=== PATIENT | female | born 1985 | race Caucasian/White ===

== ENCOUNTER 2023-07-01 08:34 | Day surgery (SDC) | payer BC, SELFPAY ==
[2023-07-01] VITALS (28 sets, daily range): BP systolic 82–114; BP diastolic 52–83; PULSE 57–96; RESP 13–18; TEMP 36–37.3; O2SAT 97–100; BMI 24.3
[2023-07-01] MEDS: CEFAZOLIN 2 GM INJ IVP (07:56)
--- OUTSIDE RECORDS SUMMARY | 2023-07-01 08:38 | XMS_ITS | Clinical Summary ---
Author Name Unknown Organization [employer] [facility] [employer] Address [place], [place] [address] Care Team Providers Care Child Day Care Teacher Name Role Phone Gracia Mills MD Primary Care Prov ider Allergies No known active allergies Medications Medication Sig Dispensed Refills Start Date End Date Status cetirizine (ZYRTEC) 10 mg tablet Take 1 tablet by mouth once daily. 0 11/23/2014 Active psyllium (METAMUCIL) 3.4 gram pwpk packet Take 1 Packet by mouth. Active ascorbic acid, vitamin C, (VITAMIN C) 1,000 mg tablet Take 1 tablet by mouth once daily. 0 03/06/2020 Active cholecalciferol (VITAMIN D-3) 2,000 unit capsule Take 1 capsule by mouth once daily. 0 03/06/2020 Active multivitamin (MVI) tablet Take 1 Tablet by mouth once daily. 0 02/10/2022 Active mefenamic acid (PONSTEL) 250 mg cap Take 250 mg by mouth. TAKE 2 CAPSULES BY MOUTH AT ONSET OF MENSES OR CRAMPING (WHICHEVER COMES FIRST) THEN TAKE TAKE ONE CAPSULE BY MOUTH EVERY 6 HOURS NEEDED 03/25/2023 Active levothyroxine (SYNTHROID) 25 mcg tablet Take 25 mcg by mouth once daily. 05/28/2023 Active dicyclomine (BENTYL) 10 mg capsuleIndicatio ns:Abdominal pain, epigastric Take 1 Capsule (10 mg) by mouth four times daily before meals and at bedtime. 60 Capsule 05/31/2023 Active naltrexone (Lotrexone) 4.5 mg cap Take 4.5 mg by mouth once daily. 06/16/2023 Active omeprazole (PRILOSEC) 20 mg Delayed-Release capsule Take 20 mg by mouth once daily. 06/02/2023 Active methylPREDNISolo ne (MEDROL, NAN,) 4 mg tabletIndication s:Acute midline low back pain without sciatica Take by mouth as instructed per packaging. 1 Package 04/11/2020 06/21/2023 Discontinue d(*Med complete/Re gimen complete/[place] of care change) cyclobenzaprine (FLEXERIL) 5 mg tabletIndication s:Acute midline low back pain without sciatica Take 1-2 tablets by mouth 3 times daily if needed for Muscle Spasm. 60 tablet 1 04/11/2020 06/21/2023 Discontinue d(*Med complete/Re gimen complete/[place] of care change) methylPREDNISolo ne (Medrol, Nan,) 4 mg tabletIndication s:Sinus pain Take by mouth as instructed per packaging. 21 Tablet 10/17/2022 06/21/2023 Discontinue d(*Med complete/Re gimen complete/[place] of care change) Active Problems Problem Noted Date Diagnosed Date Encounter for supervision of normal first , unspecified trimester 06/16/2018 Overview: A negative H/o Right ovarian cystectomy and salpingectomy Hypothyroidism Rhogam__ Tdap 11/30/18 Influenza vaccine 12/13/18 plan includes epidural, does not want hepatitis B after for baby. Antepartum thyroid dysfunction 05/16/2018 Overview: TSH Goals in 1st Trimester: 0.1 - 2.5 mIU/L 2nd Trimester: 0.2 - 3.0 mIU/L 3rd Trimester: 0.3 - 3.0 mIU/L Acquired hypothyroidism 04/18/2018 Overview: Overview: Post partial thyroidectomy History of partial thyroidectomy 03/22/2018 Thyroid nodule Encounters Date Type Department Care Team Description 06/21/2023 10:45 AM CDT Preop Visit [facility] [address] [place] [address] Manjula Cunningham PA Preoperative Exam (Hysterectomy- Leaving ovaries/07/01/23/[facility]/Dr. Oglesby ) 06/21/2023 Travel 05/31/2023 2:00 PM CDT Orders Only [facility] [address] [facility] [place] [address] Lab, Lauren Lab 05/31/2023 10:15 AM CDT Office Visit [facility] [address] [place] [address] Renu Shelton PA Abdominal Pain (epigastric and liver and wrapping around into R kidney, has hx of kidney stone and right, getting worse over last 2 months); Nutrition (hard time eating, gets nauseated a lot when eating) 05/31/2023 Travel 05/21/2023 Telephone [facility] [address] [facility] [place] [address] Abundio Barriga MD Follow Up (Patient unable to get ahold of clinic, as it's the weekend. Patient wondering if her surgery is cancelled on Wednesday. Her [place] to provide [place]care and wanted clarity.) 05/21/2023 Telephone [facility] [address] [facility] [place] [address] Abundio Barriga MD Follow Up (Patient unable to get ahold of clinic, as it's the weekend. Patient wondering if her surgery is cancelled on Wednesday. Her mother [place] to provide childcare and wanted clarity.) 05/20/2023 12:27 PM MATHEMATICS IMPROVEMENT TEACHER - 05/20/2023 2:38 PM MATHEMATICS IMPROVEMENT TEACHER Emergency [facility] [address] [facility] [place] [address] Jagdeep Prajapati MD Vaginal bleeding (Primary Dx); Pre-syncope Discharge Disposition: Home Self Care 05/20/2023 Travel from Last 3 Months Immunizations Name Administration Dates Next Due AMB INFLUENZA, IIV4 (AGE=>6M OS) V (Flu Clinic Only) 01/26/2017 Influenza Virus, Unspecified 02/01/2020, 12/13/2018,01/31/2018,2014 Influenza, IIV4 12/13/2018,01/31/2018,01/07/2016 Tdap 11/30/2018,02/06/2013 Family History Medical History Relation Name Comments Good Health Father Cancer-breast Maternal Aunt Cancer-breast Mother Heart Disease Mother Cancer-breast Other cousin Allergies Sister Asthma Sister Anesthesia Problem No Family History Blood Disease No Family History Relation Name Status Comments Father Maternal Aunt Mother Other cousin had [address] cancer Sister Social History Tobacco Use Types Packs/Day Years Used Date Smoking Tobacco: Never Smokeless Tobacco: Never Tobacco Cessation:Counseling Given: Yes Alcohol Use Standard Drinks/Week Comments No 0 (1 standard drink = 0.6 oz pur e alcohol) PHQ-2 Answer Date Recorded PHQ-2 Score 0 05/24/2018 Social Connections Answer Date Recorded Frequency of Communication with Friends and Fami ly Not on file 03/22/2021 Financial Resource Strain Answer Date R ecorded Difficulty of Paying Living Expenses Not on file 03/22/2021 Difficulty of Paying Living Expenses Not on file 03/22/2021 Sex and Gender Information Value Date Recorded Sex Assigned at Not on file Gender Identity Not on file Sexual Orientation Not on file Obstetrics History Para Term AB IAB SAB Ectopic Multiple Livin g Live Births 1 Date Outcome GA Total Labor Labor/2nd/3rd Weight Sex Delivery Anes PTL Bernie A1 A5 Name Cl in Last Filed Vital Signs Vital Sign Reading Time Taken Comments Blood Pressure 111/78 06/21/2023 10:50 AM CDT Pulse 94 06/21/2023 10:50 AM CDT Temperature 36.3 ??C (97.4 ??F) 06/21/2023 10:50 AM C DT Respiratory Rate 16 06/21/2023 10:50 AM CDT Oxygen Saturation 100% 06/21/2023 10:50 AM CDT Inhaled Oxygen Concentration - - Weight 74.7 kg (164 lb 9.6 oz) 06/21/2023 10:50 AM CDT Height 187.5 cm (6' 1.83) 06/21/2023 10:50 AM C DT Body Mass Index 21.23 06/21/2023 10:50 AM CDT Plan of Treatment Health Maintenance Due Date Last Done Comments HIV for age 15-65 2001 Hepatitis C screening for age 18-79 2004 Pap test for age 21-65 05/02/2018 6 ([facility] Depression screening for age 12+ 05/02/2019 05/02/2018, 04/12/2017, 03/23/2016, Additional history exists COVID-19 vaccine series (2022- season) 2022 Influenza for age 9-49 11/21/2023 0, 12/13/2018, 12/13/2018, Additional history exists BMI (ht and wt on same day) for age 18+ 06/20/2024 06/21/2023, 12/25/2019, 02/24/2019, Additional history exists Tetanus booster 11/30/2028 11/30/2018, 02/06/2013 Tdap Completed 11/30/2018, 02/06/2013 Pneumococcal series for age 6-64 Aged Out No longer eligible based on patient's age to complete this topic Procedures Procedure Name Priority Date/Time Associated Diagnosis Comments HEMOGLOBIN Routine 06/21/2023 11:22 AM CDT Preop examination AMB CONSULT TO GASTROENTEROLOGY Routine 06/03/2023 7:51 PM CDT Abdominal pain, epigastric H PYLORI ANTIGEN,STOOL Routine 1:40 PM CDT Abdominal pain, epigastric TISSUE TRANSGLUTAMINASE IGA Routine 05/31/2023 10:50 AM CDT Abdominal pain, epigastric CELIAC CASCADE PANEL Routine 05/31/2023 10:50 AM CDT Abdominal pain, epigastric C-REACTIVE PROTEIN STAT 05/31/2023 10 :50 AM CDT Abdominal pain, epigastric SEDIMENTATION RATE STAT 05/31/2023 10 :50 AM CDT Abdominal pain, epigastric HEPATIC FUNCTION PANEL Routine 4 10:50 AM CDT Abdominal pain, epigastric US PELVIS COMPLETE TA AND TV WITH DUPLEX STAT 05/20/2023 2:06 PM MATHEMATICS IMPROVEMENT TEACHER EKG 12 LEAD STAT 05/20/2023 1:15 PM MATHEMATICS IMPROVEMENT TEACHER URINE CULTURE CIRA 05/20/2023 1:07 PM MATHEMATICS IMPROVEMENT TEACHER URINALYSIS MICROSCOPIC STAT 1:07 PM MATHEMATICS IMPROVEMENT TEACHER UA W/ SEDIMENT EXAM REFLEXED PER CRITERIA STAT 05/20/2023 1:07 PM MATHEMATICS IMPROVEMENT TEACHER BASIC METABOLIC PANEL STAT 05/20/2023 1:01 PM MATHEMATICS IMPROVEMENT TEACHER CBC W PLT NO DIFF STAT 05/20/2023 1:0 1 PM MATHEMATICS IMPROVEMENT TEACHER from Last 3 Months Results * HEMOGLOBIN (06/21/2023 11:22 AM CDT) HEMOGLOBIN 14.5 12.0 - 16.0 g/dL 06/21/2023 11:28 AM CDT [facility] MCV 90 80 - 100 fL 06/21/2023 11:28 AM CDT [facility] Blood BLOOD SPECIMEN / Unknown Venipuncture / Unknown 06/21/2023 11:22 AM CDT 06/21/2023 11:23 AM CDT Manjula PAN HEMATOLOGY [facility] [address] [place] [address], * H PYLORI ANTIGEN,STOOL (05/31/2023 1:40 PM CDT) Pathologist [facility] H PYLORI INTERPRETATION Negative Negative 06/02/2023 1:13 PM CDT [facility] Comment:Indicates absence of H Pylori Stool antigen Stool STOOL SPECIMEN / Unknown Non-Blood / Unknown 05/31/2023 1:40 PM CDT 05/31/2023 1:58 PM CDT Narrative [facility] - 06/02/2023 1:13 PM CDT The Liaison?? Edgar H Pylori SA assay has not been evaluated in a pediatric population. Renu PAN MICROBIOLOGY Performing Organization Address City/[facility]/ZIP Co de Phone Number [facility] [address] [place] [id number], * SEDIMENTATION RATE (05/31/2023 10:50 AM CDT) SEDIMENTATION RATE <1 <20 mm/hr 2023 12:45 PM CDT [facility] Blood BLOOD SPECIMEN / Unknown Venipuncture / Unknown 05/31/2023 10:50 AM CDT 05/31/2023 10:54 AM CDT Renu PAN HEMATOLOGY Performing Organization Address City/[facility]/ZIP Co de Phone Number [facility] [address] [place] [address] * CELIAC CASCADE PANEL (05/31/2023 10:50 AM CDT) IGA 189.21 84.50 - 499.00 mg/dL 06/01/2023 7:25 AM CDT [facility] Blood BLOOD SPECIMEN / Unknown Venipuncture / Unknown 05/31/2023 10:50 AM CDT 05/31/2023 10:54 AM CDT Narrative [facility] - 06/01/2023 7:25 AM CDT Reflexed to Tissue Transglutaminase IgA Renu PAN SEND OUTS Performing Organization Address [facility]/ZIP Co de Phone Number [facility] [address] [place] [phone], * TISSUE TRANSGLUTAMINASE IGA (05/31/2023 10:50 AM CDT) TISSUE TRANSGLUTAMINASE IGA <1.2 <4.0 U/ml 06/02/2023 1:19 PM CDT [facility] Comment:Celiac disease unlik nayan unless IgA deficient. Recommend IgA levels if not already performed. Blood BLOOD SPECIMEN / Unknown Venipuncture / Unknown 05/31/2023 10:50 AM CDT 05/31/2023 10:54 AM CDT Narrative [facility] - 06/02/2023 1:19 PM CDT Negative ?<4.0 Weak Positive ?? 4-10 Positive ?>10.0 This test should not be solely relied upon to establish a diagnosis of celiac disease. Affected individuals who have been on a gluten-free diet prior to testing may have a negative result. These results were obtained using the Placelya Trekeae R h-tTG IgA BHARTI assay. ??Values obtained from other manufacturers' assay methods may not be used interchangeably. Renu PAN SEND OUTS Performing Organization Address City/[facility]/ZIP Co de Phone Number [facility] [address] [place] [address], * C-REACTIVE PROTEIN (05/31/2023 10:50 AM CDT) C-REACTIVE PROTEIN <0.3 <0.5 mg/dL 05/31/2023 12:57 PM CDT [facility] Blood BLOOD SPECIMEN / Unknown Venipuncture / Unknown 05/31/2023 10:50 AM CDT 05/31/2023 10:54 AM CDT Renu PAN CHEMISTRY Performing Organization Address City/[facility]/ZIP Co de Phone Number [facility] [address] [place] [phone] * HEPATIC FUNCTION PANEL (05/31/2023 10:50 AM CDT) ALBUMIN 4.8 4.0 - 4.9 g/dL 05/31/2023 12:57 PM CDT [facility] PROTEIN,TOTAL 7.4 6.0 - 8.0 g/dL 05/31/2023 12:57 PM CDT [facility] BILIRUBIN,TOTAL 0.5 0.0 - 1.2 mg/dL 05/31/2023 12:57 PM CDT [facility] BILIRUBIN,DIRECT <0.2 0.0 - 0.3 mg/dL 05/31/2023 12:57 PM CDT [facility] BILIRUBIN,INDIRE CT 05/31/2023 12:57 PM CDT [facility] Comment:Unable to calculate, Direct Bili <0.2 ALK PHOSPHATASE 62 35 - 104 IU/L 05/31/2023 12:57 PM CDT [facility] ALT (SGPT) 15 10 - 35 IU/L 05/31/2023 12:57 PM CDT [facility] AST (SGOT) 19 10 - 35 IU/L 05/31/2023 12:57 PM CDT [facility] Blood BLOOD SPECIMEN / Unknown Venipuncture / Unknown 05/31/2023 10:50 AM CDT 05/31/2023 10:54 AM CDT Renu PAN CHEMISTRY [facility] [address] [place] [address] * US PELVIS COMPLETE TA AND TV WITH DUPLEX (05/20/2023 2:06 PM MATHEMATICS IMPROVEMENT TEACHER) Anatomical Region Laterality Modality Pelvis Ultrasound Impressions 05/20/2023 2:15 PM MATHEMATICS IMPROVEMENT TEACHER Normal uterus and endometrium. ??Inadequate visualization of the ovaries and adnexa due to shadowing bowel gas. Narrative 05/20/2023 2:15 PM MATHEMATICS IMPROVEMENT TEACHER EXAM: US Pelvis complete transabdominal and transvaginal with duplex Doppler TECHNIQUE: Transabdominal and transvaginal grayscale and colorDoppler ultrasound of the pelvis. [Duplex dopper ulrasound obtained in both ovaries.] [Transvaginal imaging necessary for better evaluation of the endometrium / ovaries.] COMPARISON: CT 02/17/2022 INDICATION: Abnormal bleeding FINDINGS: The uterus measures 9.2 x 5.5 x 4.2 cm. [No uterine mass.] [The endometrium measures 1.2 cm in double thickness. [No endometrial mass.] Large amount of shadowing bowel gas in the pelvis. ??The right ovary is not seen. ??The left ovary is not definitely seen. ??No solid or cystic adnexal mass. [No] pelvic free fluid. Jagdeep Prajapati MD US * EKG 12 LEAD (05/20/2023 1:15 PM MATHEMATICS IMPROVEMENT TEACHER) Interpretation Sinus rhythm with marked sinus arrhythmia Possible Left atrial enlargement Borderline ECG No previous ECGs available BEYOND NOW Ventricular Rate 87 BPM BEYOND NOW Atrial Rate 87 BPM BEYOND NOW P-R Interval 134 ms BEYOND NOW QRS Duration 80 ms BEYOND NOW QT 350 ms BEYOND NOW QTc 421 ms BEYOND NOW P [place] 81 degrees BEYOND NOW R [place] 87 degrees BEYOND NOW T [place] 45 degrees BEYOND NOW 05/20/2023 1:15 PM MATHEMATICS IMPROVEMENT TEACHER 05/20/2023 4:18 PM MATHEMATICS IMPROVEMENT TEACHER Jagdeep Prajapati MD EKG ORD Performing Organization Address [facility] de Phone Number BEYOND NOW [place], [place] * (ABNORMAL) URINALYSIS MICROSCOPIC (05/20/2023 1:07 PM MATHEMATICS IMPROVEMENT TEACHER) RBC >100(A) 0-2, None Seen /HPF 05/20/2023 1:35 PM MATHEMATICS IMPROVEMENT TEACHER [facility] WBC 11-25(A) 0-2, 3-5, None Seen /HPF 05/20/2023 1:35 PM MATHEMATICS IMPROVEMENT TEACHER [facility] BACTERIA Moderate(A ) None Seen, Rare, Few Bacteria/ HPF 05/20/2023 1:35 PM MATHEMATICS IMPROVEMENT TEACHER [facility] EPITHELIAL CELLS Few None Seen, Few Epi/HPF 05/20/2023 1:35 PM MATHEMATICS IMPROVEMENT TEACHER [facility] Urine URINE SPECIMEN / Unknown Non-Blood / Unknown 05/20/2023 1:07 PM MATHEMATICS IMPROVEMENT TEACHER 05/20/2023 1:16 PM MATHEMATICS IMPROVEMENT TEACHER Jagdeep Prajapati MD URINE Performing Organization Address [facility] Co de Phone Number [facility] [address] [place] [phone] * URINE CULTURE (05/20/2023 1:07 PM MATHEMATICS IMPROVEMENT TEACHER) CULTURE 10-50,000 CFU/mL of multiple organisms, probable contaminants 05/21/2023 6:03 PM MATHEMATICS IMPROVEMENT TEACHER [facility] Urine URINE SPECIMEN / Unknown Non-Blood / Unknown 05/20/2023 1:07 PM MATHEMATICS IMPROVEMENT TEACHER 05/20/2023 1:16 PM MATHEMATICS IMPROVEMENT TEACHER Jagdeep Prajapati MD MICROBIOLOGY [facility] [address] [place] [address], [place] * (ABNORMAL) UA W/ SEDIMENT EXAM REFLEXED PER CRITERIA (05/20/2023 1:07 PM MATHEMATICS IMPROVEMENT TEACHER) COLOR Red(A) Yellow Color 05/20/2023 1:35 PM [facility] CLARITY Cloudy(A) Clear Clarity 05/20/2023 1:35 PM [facility] SPECIFIC GRAVITY,URINE Unable to interpret due to interfering substance(A) 1.010, 1.015, 1.020, 1.025 05/20/2023 1:35 PM [facility] PH,URINE Unable to interpret due to interfering substance(A) 6.0, 7.0, 8.0, 5.5, 6.5, 7.5, 8.5 05/20/2023 1:35 PM [facility] UROBILINOGEN, QUALITATIVE Unable to interpret due to interfering substance(A) Normal EU/dl 05/20/2023 1:35 PM [facility] PROTEIN, URINE Unable to interpret due to interfering substance(A) Negative mg/dL 05/20/2023 1:35 PM [facility] GLUCOSE, URINE Unable to interpret due to interfering substance(A) Negative mg/dL 05/20/2023 1:35 PM [facility] KETONES,URINE Unable to interpret due to interfering substance(A) Negative mg/dL 05/20/2023 1:35 PM [facility] BILIRUBIN,URI NE Unable to interpret due to interfering substance(A) Negative 05/20/2023 1:35 PM [facility] OCCULT BLOOD,URINE Unable to interpret due to interfering substance(A) Negative 05/20/2023 1:35 PM [facility] NITRITE Unable to interpret due to interfering substance(A) Negative 05/20/2023 1:35 PM [facility] LEUKOCYTE ESTERASE Unable to interpret due to interfering substance(A) Negative 05/20/2023 1:35 PM [facility] Urine URINE SPECIMEN / Unknown Non-Blood / Unknown 05/20/2023 1:07 PM MATHEMATICS IMPROVEMENT TEACHER 05/20/2023 1:16 PM MATHEMATICS IMPROVEMENT TEACHER Jagdeep Prajapati MD URINE [facility] [address] [place] [address] * CBC W PLT NO DIFF (05/20/2023 1:01 PM MATHEMATICS IMPROVEMENT TEACHER) WHITE BLOOD COUNT 8.2 4.5 - 11.0 thou/cu mm 05/20/2023 1:08 PM [facility] RED BLOOD COUNT 4.97 4.00 - 5.20 mil/cu mm 05/20/2023 1:08 PM [facility] HEMOGLOBIN 15.2 12.0 - 16.0 g/dL 05/20/2023 1:08 PM [facility] HEMATOCRIT 44.8 33.0 - 51.0 % 05/20/2023 1:08 PM [facility] MCV 90 80 - 100 fL 05/20/2023 1:08 PM [facility] MCH 30.6 26.0 - 34.0 pg 05/20/2023 1:08 PM [facility] MCHC 33.9 32.0 - 36.0 g/dL 05/20/2023 1:08 PM [facility] RDW 12.7 11.5 - 15.5 % 05/20/2023 1:08 PM [facility] PLATELET COUNT 282 140 - 440 thou/cu mm 05/20/2023 1:08 PM [facility] MPV 10.1 6.5 - 11.0 fL 05/20/2023 1:08 PM [facility] Blood BLOOD SPECIMEN / Unknown Venipuncture / Unknown 05/20/2023 1:01 PM MATHEMATICS IMPROVEMENT TEACHER 05/20/2023 1:04 PM MATHEMATICS IMPROVEMENT TEACHER Jagdeep Prajapati MD HEMATOLOGY [facility] [address] [place] [address] * BASIC METABOLIC PANEL (05/20/2023 1:01 PM MATHEMATICS IMPROVEMENT TEACHER) SODIUM 139 136 - 145 mmol/L 05/20/2023 1:23 PM [facility] POTASSIUM 4.4 3.5 - 5.1 mmol/L 05/20/2023 1:23 PM [facility] CHLORIDE 105 98 - 107 mmol/L 05/20/2023 1:23 PM [facility] CO2,TOTAL 25 22 - 29 mmol/L 05/20/2023 1:23 PM [facility] ANION GAP 9 5 - 18 05/20/2023 1:23 PM [facility] GLUCOSE 95 70 - 99 mg/dL 05/20/2023 1:23 PM [facility] CALCIUM 9.5 8.6 - 10.0 mg/dL 05/20/2023 1:23 PM [facility] BUN 10 6 - 20 mg/dL 05/20/2023 1:23 PM [facility] CREATININE 0.73 0.50 - 0.90 mg/dL 05/20/2023 1:23 PM [facility] BUN/CREAT RATIO 14 10 - 20 1:23 PM [facility] eGFR >90 >90 mL/min/1.7 3m2 05/20/2023 1:23 PM [facility] Comment:As of 2021, eG FR is calculated by the CKD-EPI creatinine equation without race adjustment. ??eGFR can be influenced by muscle mass, exercise, and diet. ??The reported eGFR is an estimation only and is only applicable if the renal function is stable. Blood BLOOD SPECIMEN / Unknown Venipuncture / Unknown 05/20/2023 1:01 PM MATHEMATICS IMPROVEMENT TEACHER 05/20/2023 1:04 PM MATHEMATICS IMPROVEMENT TEACHER Jagdeep Prajapati MD CHEMISTRY [facility] [address] [place] [address] from Last 3 Months Advance Directives Documents on File Type Date Recorded Patient Electronic Publisher Expl anation Treatment Guidelines 01/24/2019 12:00 AM 1 03/26/2018 * Full Code (Latest Code Status on File) Date Activated Date Inactivated Comments 01/24/2019 10:50 AM 01/28/2019 1:23 PM * Full Code Date Activated Date Inactivated Comments 02/21/2018 8:19 AM 02/22/2018 2:35 AM Question Answer Comments Code Status Discussion: Discussed Care Teams Child Day Care Teacher Relationship Specialty Start Date End Date Gracia Mills MD [address] [place] [address] PCP - General Family Practice 10/02/14
[2023-07-01 08:52] LABS: Ur HCG Qualitative* Negative (Negative)
[2023-07-01 09:05] LABS: Hemoglobin* 14.6 gm/dL (12.0-16.0)
[2023-07-01] MEDS: LACTATED RINGERS 1000 ML 1,000 ML 100 ML IV ×2 (09:18→12:01)
[2023-07-01] MEDS: SODIUM CHLORIDE 0.9 % (FLUSH) 10 ML SYRINGE IVF (09:18)
[2023-07-01 09:22] LABS: Creatinine* 0.6 mg/dL (0.5-1.5); Estimated Glomerular Filt Rate 118 ml/min
[2023-07-01] MEDS: SCOPOLAMINE 1 MG/3 DAY PATCH 1 PATCH TRANSDERMA (10:30)
[2023-07-01] MEDS: PHENAZOPYRIDINE HCL 200 MG TABLET PO (10:41)
--- NOTE | 2023-07-01 10:42 | W.PM.H&PU ---
History & Physical Update History & Physical Update H&P Reviewed and patient assessed: No changes noted
[2023-07-01] MEDS: LIDOCAINE 1 % PF 30 ML INJECTION (11:25)
[2023-07-01] MEDS: BUPIVACAINE 0.25% 30 ML INJECTION (11:25)
--- NOTE | 2023-07-01 13:44 | P.GYNPRC_ITS ---
Procedure Note Date of procedure: 07/01/23 Will [facility] bill your pro fee for this procedure?: Yes Pre-op diagnosis: Dysmenorrhea and menorrhagia Post-op diagnosis: Same Procedure: Total laparoscopic hysterectomy with bilateral salpingectomy Cystoscopy Anesthesia: GETA Complications: None Surgeon: Gogo Oglesby MD Executive Team Leader: Mary Hickey Estimated blood loss (mL): 25 IV fluids (mL): 1,700 Urine Output (mL): 350 Pathology: specimen obtained, sent to pathology (Uterus, cervix, and bilateral fallopian tubes) Condition: stable Disposition: PACU Findings: 1. Upon pelvic exam under anesthesia, the cervix and vagina were normal in appearance. Uterus was mobile and anteverted, of normal size and texture. There were no palpable adnexal masses. 2. Upon laparoscopy, survey of the upper abdomen revealed a normal appearance to the inferior edge of the liver, gallbladder and stomach. Bowels were grossly normal appearance. Survey of the pelvis revealed normal appearance to the uterus. The fimbria of the right fallopian tube was surgically absent. The proximal portion of the right fallopian tube as well as right ovary was present. Left tube and ovary were normal in appearance. The cul-de-sac and bladder reflection were normal in appearance. Uterine weight was 112 g. Procedure Description: Patient was taken to the operating room with IV running. She received cefazolin in preoperative prophylaxis. She was positioned in dorsal lithotomy position with her legs fully supported in Yellofin stirrups. General anesthesia was administered. She was prepped and draped in the usual sterile fashion. Pelvic exam under anesthesia was performed for the above-noted findings. Speculum was inserted. Cervix visualized and grasped along its anterior lip with a single-tooth tenaculum. Cervix was dilated with Hegar dilators to accommodate the VCare uterine manipulator. A medium-sized colpotomizer cup was selected. The tip of the uterine manipulator was inserted through the cervix into the uterine cavity and the balloon was inflated. The speculum was removed. The colpotomy cup was advanced, surrounding the cervix, and the proximal occluder was moved up along the shaft of the VCare and fixed in place. Zavala catheter was placed. Patient's legs were then placed in neutral position. Attention was turned to patient's abdomen. Infraumbilical area was infiltrated with a small amount of Marcaine. A 5 mm infraumbilical incision was made with a scalpel and carried down to the underlying layer of fascia with the hemostat. 5 mm camera was placed within the 5 mm Fios Kii trocar, and advanced under direct visualization through the anterior abdominal wall into the peritoneal cavity, while tenting up the anterior abdominal wall. The trocar was removed. The balloon was inflated, holding the port in place. Pneumoperitoneum was achieved. Survey of the abdomen and pelvis revealed the above-noted findings. Three additional port sites were created. The first was in the patient's left l ower quadrant, just superomedial to the left ASIS. The second was a hand's breadth superior to and slightly medial to the first. The third was in the patient's right lower quadrant, just superomedial to the right ASIS. An 11 mm incision was made in the left lower quadrant, and a 5 mm incision was made at the other 2 sites, after assuring that large vessels were out of harm's way. A 10 mm Fios Kii port was inserted at the left lower quadrant site, and a 5 mm Fios Kii port at each of the other 2 sites, under direct visualization and without complication. The balloon on each of the four ports was inflated, holding each in place. Attention was first turned to the left fallopian tube, which was divided from the mesosalpinx, using the Thunderbeat bipolar cautery device, proceeding laterally to medially, and the tube was amputated at the left uterine cornua. This was removed through the port site and sent to pathology. This procedure was repeated on the patient's right side, and the right fallopian tube was also amputated at the cornua and removed from the patient's abdomen. This was also sent to pathology for further analysis. The left round ligament was cauterized and transected with the Thunderbeat device. The utero-ovarian ligament was cauterized and transected, and the remnants of the right broad ligament were cauterized and transected between these two structures. The bladder flap was created on the patient's left side, moving laterally to medially. The left uterine artery was cauterized and transected with the Thunderbeat device. Attention was then turned to the right side of the uterus, where the right round ligament was cauterized and transected with the Thunderbeat device. The right utero-ovarian ligament was cauterized and transected, and the remnants of the right round ligament were cauterized and transected between these two structures. The bladder flap was created on the patient's right side, and dissection was carried laterally to medially, meeting the dissection where it had left off from the patient's right side. The right uterine artery was cauterized and transected with the Thunderbeat device. The bladder reflection was moved well below the colpotomizer cup anteriorly. The vaginal fornix was then entered anteriorly with the Thunderbeat device, using the colpotomizer cup as a guide. This device was moved along the circumfe rence of the colpotomizer cup, until the uterus and cervix were freed from their attachments to the pelvis. The uterus was pulled into the patient's vagina, maintaining the pneumoperitoneum. The vaginal cuff was closed with a series a figure-eight sutures of 0 Vicryl. These were placed and tied intracorporeally. Ports were left in place but all instruments were removed and pneumoperitoneum w as released. Patient's legs were placed back in lithotomy position. The uterus was removed from the vagina and was sent to pathology for further analysis. Speculum exam was performed, showing an intact cuff with no obvious active bleeding. The Zavala catheter was removed from the bladder, and the cystoscope was assembled with saline inflow, outflow, and light cord in place. The patient was given IV sodium fluorescein prior to the cystoscopy. Cystoscope was advanced through the urethra into the bladder, and survey of the mucosa revealed a normal appearance. The bladder dome was intact. Bilateral ureteral jets were noted. Cystoscope was removed and Azvala catheter replaced. Patient's legs were again placed in neutral position. Insufflator was reattached to the port and pneumoperitoneum again achieved. Survey of the pelvis revealed hemostasis. The 11 mm Fios Kii port in the left lower quadrant was removed after balloon on the port was deflated. The Nahid-Demetrius laparoscopic closure device was inserted through this port. With the help of this device, the fascia was closed with a single suture of 0-Vicryl. Procedure was deemed complete. The balloons of all remaining port sites were deflated, and all ports were removed after pneumoperitoneum was released. The skin of each port site was closed in a subcuticular fashion with 4 0 Monocryl. Surgical glue was applied above this. Patient tolerated procedure well and was taken to recovery area in stable condition.
--- NOTE | 2023-07-01 13:44 | W.ANESCHARGE ---
Anesthesia Charges Start Date/Time Anesthesia Start Date: 07/01/23 Anesthesia Start Time: 10:47 Stop Date/Time Anesthesia Stop Date: 07/01/23 Anesthesia Stop Time: 13:45
--- NOTE | 2023-07-01 13:53 | W.ANESCHARGE ---
Anesthesia Charges Start Date/Time Anesthesia Start Date: 07/01/23 Anesthesia Start Time: 10:47 Stop Date/Time Anesthesia Stop Date: 07/01/23 Anesthesia Stop Time: 13:45
--- NOTE | 2023-07-01 13:54 | W.PM.NB ---
Nerve Block Nerve Block Time Seen by Provider: 10:52 Date Seen: 07/01/23 Type of block requested by surgeon for post-operative analgesia: TAP Side: bilateral Time out performed: Yes Verification of patient name: Yes Verification of date of : Yes Site marking: site marked Name of person performing procedure: Aditya Continuous monitoring Was continuous monitoring of O2 sat, B/P, potline monitor, recorded every 15 minutes?: Yes Procedure Checklist: sterile prep, needles and gloves Ultrasound guided. Images saved: Yes Medications given in 5ml increments after negative aspiration: Marcaine %: 0.25 mL: 30 Needle gauge: 20 and Exparel mL: 10 Patient tolerated procedure well: Yes Additional comments: Needle noted between internal oblique and transversus abdominus. Local spread visualized Block Charges Block Charge (with Pro Fee): TAP Bilateral Use of Ultrasound Machine for Block: Yes- US Guidance/pain block
[2023-07-01] MEDS: HYDROmorphone 0.5 mg/0.5 ml inj IVP (14:00)
[2023-07-01] MEDS: fentaNYL 100 MCG/2 ML inj 50 MCG IVP ×2 (14:15→14:50)
[2023-07-01] MEDS: MEPERIDINE 25 MG/ML INJ 12.5 MG IVP (14:40)
[2023-07-01] MEDS: LACTATED RINGERS 1000 ML 1,000 ML 35 ML IV (14:50)
--- NOTE | 2023-07-01 14:59 | SUR.PHASEI ---
third bag IV fluids started at 1450
[2023-07-01] MEDS: SIMETHICONE 80 MG TAB.CHEW 160 MG PO ×2 (16:25→22:36)
[2023-07-01] MEDS: ACETAMINOPHEN 325 MG TABLET 650 MG PO ×2 (16:25→22:35)
[2023-07-01] MEDS: OXYCODONE 5 MG TABLET PO ×2 (18:53→22:35)
--- NOTE | 2023-07-01 19:01 | PC.NURSE ---
End of shift [id number] ? Pt arrived from PACU at approximately 1500. Pt awake, oriented, but drowsy. Family at bedside. Pt reported abdominal pain as 4-5/10 but reported that the sharp catheter was also giving her abdominal discomfort. Ice pack applied to site, dressing open to air with small amount of serous drainage present. Pt up with standby assistance, voiding trial conducted per MD orders and pt able to void independently with sharp catheter removed. Pt tolerating room air, regular diet, fluids. Denies nausea, SOB, dizziness. After sharp catheter removal, pt reported abdominal pain as 2/10. Pt appears to be resting comfortably at end of shift. ?
[2023-07-01] MEDS: KETOROLAC 30 MG/ML inj IVP (20:54)
[2023-07-02 03:00] VITALS: BP 91/63; PULSE 68; RESP 18; TEMP 36.6; O2SAT 97
[2023-07-02] MEDS: KETOROLAC 30 MG/ML inj IVP (03:00)
[2023-07-02] MEDS: OXYCODONE 5 MG TABLET PO ×2 (03:01→06:35)
[2023-07-02 05:37] LABS: Creatinine* 0.7 mg/dL (0.5-1.5); Estimated Glomerular Filt Rate 114 ml/min
[2023-07-02] MEDS: OMEPRAZOLE 20 MG CAPSULE DR PO (06:35)
[2023-07-02] MEDS: LEVOTHYROXINE 25 MCG TABLET PO (06:35)
--- NOTE | 2023-07-02 06:50 | PC.NURSE ---
SHIFT NOTE : Pt pleasant and cooperative, A&O. 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 Ice pack to abdomen. Denies nausea, reports this AM that she had a small loose BM and has passed gas. Up in the halls multiple times to walk overnight, independent, tolerating well. PRN Oxycodone, simethicone and scheduled Toradol given for pain with pt reporting adequate relief. Denies SOB and CP. Afebrile.
[2023-07-02 07:00] VITALS: BP 95/63; PULSE 67; RESP 18; TEMP 36.6; O2SAT 97
[2023-07-02] MEDS: IBUPROFEN 600 MG TABLET PO (08:25)
--- NOTE | 2023-07-02 08:36 | P.DS_ITS ---
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 Indication for surgery: menorrhagia and dysmenorrhea in the setting of chronic low back pain. Intraoperative findings were notable for surgical absence of the distal right Fallopian tube. Otherwise, she was found to have normal pelvis on laparoscopy and normal bladder on cystoscopy. She had an uncomplicated surgery. Postoperative course has been uneventful. Vitals have been stable. She has remained afebrile. Today, on postoperative day 1, she reports the pain is well controlled. She has been able to ambulate Without difficulty. She is tolerating regular diet. She is passing flatus. Zavala catheter has been removed, and she is voiding without difficulty. 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 Some bruising around the umbilical and left upper quadrant port site. Normoactive bowel sounds in all 4 quadrants. Soft, no tenderness, rebound, or guarding. 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 Oglesby Prescriptions: New acetaminophen 325 mg Tablet 650 mg PO Q4H PRN (Reason: minor pain) Qty: 0 0RF docusate sodium 100 mg Capsule 100 mg PO BID PRN (Reason: Constipation) Qty: 0 0RF ibuprofen 600 mg Tablet 600 mg PO Q6H Qty: 0 0RF oxycodone 5 mg Tablet 5 mg PO Q4H PRN (Reason: Moderate Pain) Qty: 25 0RF Continued levothyroxine [Synthroid] 25 mcg tablet 25 mcg PO DAILY methylprednisolone 4 mg tablets,dose pack 0 mg PO prednisone 20 mg tablet 20 mg PO BID omeprazole 20 mg tablet,delayed release (DR/EC) 20 mg PO QDAY cetirizine [Zyrtec] 10 mg tablet 10 mg PO QDAY PRN multivitamin [Daily Multi-Vitamin] Tablet 1 tab PO QAM dicyclomine 10 mg capsule 10 mg PO Q6H PRN ascorbate calcium (vitamin C) 500 mg tablet 1 g PO Q6H cholecalciferol (vitamin D3) 50 mcg (2,000 unit) capsule 2,000 unit PO DAILY Held mefenamic acid 250 mg capsule 250 mg PO Hold Instructions: Resume on 07/02/23. hold until no longer using ibuprofen for postoperative pain naltrexone 4.5 mg capsule 4.5 mg PO Hold Instructions: Resume on 07/16/23. hold until no longer using oxycodone Activity Detail: Avoid lifting greater than 20 lb for 4 weeks. Do not submerge incisions under water until skin is healed. Nothing per vagina for 6 weeks. [address] while taking narcotic pain medicines. Discharge Diet: Regular Patient Instructions: Acetaminophen (By mouth), Ibuprofen (By mouth), Laxative, Stool Softeners (By mouth), Oxycodone, Rapid Release (By mouth), Laparoscopic Hysterectomy (DC) Follow-up: Gracia Mills MD [Primary Care Provider] - Reny,Gogo Aragon MD [Staff Physician] - 07/15/23 10:15 am ([facility] for follow-up. Second appointment August 12, 2023 @10:[address] Oglesby for 6- week follow-up.) Discharge Orders: Discharge Order (Routine); Ordered 07/02/23 Ordered By: Gogo Oglesby
--- NOTE | 2023-07-02 11:32 | PC.NURSE ---
Discharge: patient alert and oriented x4. denies N/V/SOB. rates pain 4/10. Patient ambulating hallways and using BR indep. Patient states she is passing gas. 4 Lap sites C/D/I. Patient voiding well and reports scant blood from vagina. Patient using active ice on abdomen. Patient tolerating a reg. diet. Patient discharged to home today at 1105 accompanied by spouse. Patient's IV removed intact, discharge instructions given and patient verbalized understanding of instructions. Belongings sheet signed.
== END 2023-07-02 11:05 | disposition home or self-care (01) ==
LOC: OR 08:35 → MEDSURG 08:38
PROVIDERS: Visit Provider Obstetrics & Gynecology
PROC: 0UT94ZZ Resection of Uterus, Percutaneous Endoscopic Approach (ICD-10-PCS; CPT 58571; principal; 2023-07-01 10:00)
DX: N92.0 Excessive and frequent menstruation with regular cycle (principal); N94.6 Dysmenorrhea, unspecified; G89.18 Other acute postprocedural pain; M54.50 Low back pain, unspecified; G89.29 Other chronic pain
CPT/HCPCS: 58571; 00840; 36415; 64488; 76942; 81025; 82565; 85018; 88307; A9270; C9290; J0330; J0665; J0690; J1100; J1170; J1885; J2001; J2175; J2250; J2405; J2704; J3010; J7120

== ENCOUNTER 2023-07-05 13:10 | Outpatient (CLI) | payer BC, SELFPAY | END 2023-07-05 13:11 | disposition home or self-care (01) | LOC: NFLDREF 13:16 | PROVIDERS: Visit Provider Obstetrics & Gynecology | DX: L03.90 Cellulitis, unspecified (principal) | CPT/HCPCS: 87070 ==

== ENCOUNTER 2023-08-12 10:50 | Outpatient (CLI) | payer BC, SELFPAY ==
--- OUTSIDE RECORDS SUMMARY | 2023-08-12 10:54 | XMS_ITS | Clinical Summary ---
Author Organization [employer] [facility] Address [place], [place] [address] Care Team Providers Care Keno Terminal Operator Name Role Phone Gracia Mills MD Primary [...] daily. 05/28/2023 Active dicyclomine (BENTYL) 10 mg capsuleIndications:A bdominal pain, epigastric Take 1 Capsule (10 mg) by mouth four times daily before meals and at bedtime. 60 Capsule 05/31/2023 Active naltrexone (Lotrexone) 4.5 mg cap Take 4.5 mg by mouth once daily. 06/16/2023 Active omeprazole (PRILOSEC) 20 mg Delayed-Release capsule Take 20 mg by mouth once daily. 06/02/2023 Active Active Problems Problem Noted Date Diagnosed Date [...] Encounters Date Type Department Care Team Description 07/01/2023 Lab Requisition [facility] [phone] Gogo Oglesby MD 06/21/2023 10:45 AM CDT Preop Visit [facility] [address] [place] [address] Manjula Cunningham PA Preoperative Exam (Hysterectomy- Leaving ovaries/07/01/23/[facility]/Dr. Oglesby ) 06/21/2023 Travel 05/31/2023 2:00 PM CDT Orders Only [facility] [address] [place] [address] Lab, Lauren Lab 05/31/2023 10:15 AM CDT Office Visit [facility] [address] [place] [address] Renu Shelton PA Abdominal Pain (epigastric and liver and wrapping around into R kidney, has hx of kidney stone and right, getting worse over last 2 months); Nutrition (hard time eating, gets nauseated a lot when eating) 05/31/2023 Travel 05/21/2023 Telephone [facility] [address] [place] [address] Abundio Barriga MD Follow Up (Patient unable to get ahold of clinic, as it's the weekend. Patient wondering if her surgery is cancelled on Wednesday. Her mother is driving to [place] from [place] to provide childcare and wanted clarity.) 05/21/2023 Telephone [facility] [address] [place] [address] Abundio Barriga MD Follow Up (Patient unable to get ahold of clinic, as it's the weekend. Patient wondering if her surgery is cancelled on Wednesday. Her mother is driving to [place] from [place] to provide childcare and wanted clarity.) 05/20/2023 12:27 PM [employer] [employer] - 05/20/2023 2:38 PM [facility] [employer] [facility] Emergency [facility] [address] [place] [address] Jagdeep Prajapati MD Vaginal bleeding (Primary Dx); Pre-syncope Discharge Disposition: Home Self Care 05/20/2023 Travel from Last 3 Months Immunizations Name Administration Dates Next Due AMB INFLUENZA, IIV4 (AGE=>6M OS) MDV (Flu Clinic Only) 01/26/2017 Influenza Virus, Unspecified [...] age 21-65 05/02/2018 6 ([facility]) Depression screening for age 12+ 05/02/2019 05/02/2018, 04/12/2017, 03/23/2016, Additional history exists COVID-19 vaccine series ( season) 2022 Influenza for age 9-49 11/21/2023 , 12/13/2018, 12/13/2018, Additional history exists BMI (ht and wt on same day) for age 18+ 06/20/2024 06/21/2023, 12/25/2019, 02/24/2019, Additional history exists Tetanus booster 11/30/2028 11/30/2018, 02/06/2013 Tdap Completed 11/30/2018, 02/06/2013 Pneumococcal series for age 6-64 Aged Out No longer eligible based on patient's age to complete this topic Procedures Procedure Name Priority Date/Time Associated Diagnosis Comments LAB TRACKING EVENT Routine 07/01/2023 1: 23 PM CDT PATH TISSUE EXAM Routine 07/01/2023 8:34 AM CDT HEMOGLOBIN Routine 06/21/2023 11:22 AM CDT Preop [...] Abdominal pain, epigastric HEPATIC FUNCTION PANEL Routine 10:50 AM CDT Abdominal pain, epigastric US PELVIS COMPLETE TA AND TV WITH DUPLEX STAT 05/20/2023 2:06 PM [employer] [employer] [facility] EKG 12 LEAD STAT 05/20/2023 1:15 PM [facility] [facility] URINE CULTURE CIRA 05/20/2023 1:07 PM [facility] [facility] URINALYSIS MICROSCOPIC STAT 1:07 PM [employer] [facility] UA W/ SEDIMENT EXAM REFLEXED PER CRITERIA STAT 05/20/2023 1:07 PM [facility] BASIC METABOLIC PANEL STAT 05/20/2023 1:01 PM [facility] [facility] CBC W PLT NO DIFF STAT 05/20/2023 1:0 1 PM [employer] [facility] from Last 3 Months Results * LAB TRACKING EVENT (07/01/2023 1:23 PM CDT) Other (Other) Client Collect / Unknown 07/01/2023 1:23 PM CDT 07/01/2023 9:36 PM CDT Gogo Oglesby MD LAB BILL ONLY [facility] [address] [place] [address], * PATH TISSUE EXAM (07/01/2023 8:34 AM CDT) Case Report Pathology Report ?Case: [id number] ? Authorizing Provider: ??Gogo Oglesby MD ?? Collected: ? 07/01/2023 0834 ? Ordering Location: ? [facility] ?Received: ?07/02/2023 0623 ? Pathologist: ? Gurmeet Alvarez MD ? Specimen: ?Uterus,cervix,b ilateral fallopian tubes (no ovaries) ? 07/05/2023 5:17 PM CDT [facility] Final Diagnosis A) UTERUS WITH CERVIX AND FALLOPIAN TUBES, TOTAL HYSTERECTOMY WITH BILATERAL SALPINGECTOMY: 1. Cervix: No significant histologic abnormality 2. Endometrium: Proliferative phase 3. Myometrium: No significant histologic abnormality 4. Uterine serosa: Adhesions 5. Fallopian tubes: Benign paratubal cysts 6. Uterine weight: 103 grams 7. Negative for malignancy 07/05/2023 5:17 PM CDT [facility] [employer] [facility] LABORAT[facility]-C ENTRAL LABORATORY Clinical Information Dysmenorrhea, menorrhagia 07/05/2023 5:17 PM CDT [facility] LAB[facility]AT[facility]-C ENTRAL LABORATORY Gross Description A) Received in formalin, labeled with the patient's name and uterus, cervix, bilateral fallopian tubes, is a 103 g, 8.3 x 5.5 x 3.8 cm uterus with attached cervix and 2 detached fallopian tube segments. ??The serosa is acosta and smooth with focal thin adhesions at the anterior lower uterine segment constituting less than 5% of the surface area. ??The cervix is rubbery and cylindrical, 3 cm long and 3.3 cm in diameter with smooth acosta ectocervical mucosa surrounding a centrally located 1.2 cm os. Upon opening the squamocolumnar junction is well-demarcated and the endocervical mucosa is acosta, glistening and corrugated. ??The triangular uterine cavity has a smooth and mildly hemorrhagic endometrial lining which is 0.2-0.3 cm thick. ??No endometrial lesion is seen. ??The average myometrial thickness 1.6 cm. ??No lesion is identified on the intramural cut surfaces. One fallopian tube segment has attached fimbria (6.5 cm in length, 0.7 cm in diameter) and the second segment has no fimbria (3 cm in length, 0.6 cm in diameter). ??The contents of the jar is filtered and no additional tissue fragments are seen. The serosal surfaces of both segments are smooth. ??The short segment exhibits a rounded tip with a subjacent cyst on the cut surfaces measuring 0.5 cm in diameter with thin clear fluid contents. ??The remaining cut surfaces exhibit pinpoint/stellate lumina. ??No lesion is identified. Wheel Tuner sections: 1. ??Uterine serosal adhesions 2. ??Anterior cervix (inked blue) and posterior cervix (inked black) 3. ??Anterior endomyometrium with serosa 4. ??Posterior endomyometrium with serosa 5. ??Fallopian tube segment with entire fimbria 6. ??Entire short fallopian tube segment to include possible fimbria DPL 07/02/2023 07/05/2023 5:17 PM CDT [facility] Microscopic Description The final diagnosis is based on microscopic examination of appropriate sections of all specimens. 07/05/2023 5:17 PM CDT [facility] Additional Information Interpreted at [facility] - [address] [facility] [address], [place] [address] 07/05/2023 5:17 PM CDT [facility]- EN[facility] LAB[facility] Other (Uterus,cervix,bi lateral fallopian tubes (no ovaries)) 07/01/2023 8:34 AM CDT 07/02/2023 6:23 AM CDT Gogo Oglesby MD PATHOLOGY/CYTOLOG Y [facility] [address] [place] [address], * HEMOGLOBIN (06/21/2023 11:22 AM CDT) HEMOGLOBIN 14.5 12.0 - 16.0 g/dL 06/21/2023 11:28 AM CDT [facility] MCV 90 80 - 100 fL 06/21/2023 11:28 AM CDT [facility] Blood BLOOD SPECIMEN / Unknown Venipuncture / Unknown 06/21/2023 11:22 AM CDT 06/21/2023 11:23 AM CDT Manjula PAN HEMATOLOGY [facility] [address] [place] [address], [place] [phone] * H PYLORI ANTIGEN,STOOL (05/31/2023 1:40 PM CDT) H PYLORI INTERPRETATION Negative Negative 06/02/2023 1:13 PM CDT [facility] Comment:Indicates absence of H Pylori Stool antigen Stool STOOL SPECIMEN / Unknown Non-Blood / Unknown 05/31/2023 1:40 PM CDT 05/31/2023 1:58 PM CDT Narrative [facility] - 06/02/2023 1:13 PM CDT The Liaison?? [place] H Pylori SA assay has not been evaluated in a pediatric population. Renu PAN MICROBIOLOGY [facility] [address] * SEDIMENTATION RATE (05/31/2023 10:50 AM CDT) SEDIMENTATION RATE <1 <20 mm/hr 2023 12:45 PM CDT [facility] Blood BLOOD SPECIMEN / Unknown Venipuncture / Unknown 05/31/2023 10:50 AM CDT 05/31/2023 10:54 AM CDT Renu PAN HEMATOLOGY [facility] [address] [place] [address] * CELIAC CASCADE PANEL (05/31/2023 10:50 AM CDT) IGA 189.21 84.50 - 499.00 mg/dL 06/01/2023 7:25 AM CDT [facility] Blood BLOOD SPECIMEN / Unknown Venipuncture / Unknown 05/31/2023 10:50 AM CDT 05/31/2023 10:54 AM CDT Narrative [facility] - 06/01/2023 7:25 AM CDT Reflexed to Tissue Transglutaminase IgA Renu PAN SEND OUTS Performing Organization Address [facility] de Phone Number [facility] [address] [place] [address], * TISSUE TRANSGLUTAMINASE IGA (05/31/2023 10:50 AM CDT) TISSUE TRANSGLUTAMINASE IGA <1.2 <4.0 U/ml 06/02/2023 1:19 PM CDT [facility] Comment:Celiac disease unlik nayan unless IgA deficient. Recommend IgA levels if not already performed. Blood BLOOD SPECIMEN / Unknown Venipuncture / Unknown 05/31/2023 10:50 AM CDT 05/31/2023 10:54 AM CDT Narrative [facility] - 06/02/2023 1:19 PM CDT Negative ?<4.0 Weak Positive ?? 4-10 Positive ?>10.0 This test should not be solely relied upon to establish a diagnosis of celiac disease. Affected individuals who have been on a gluten-free diet prior to testing may have a negative result. These results were obtained using the [employer] Quanta Lite R h-tTG IgA BHARTI assay. ??Values obtained from other manufacturers' assay methods may not be used interchangeably. Renu PAN SEND OUTS Performing Organization Address [facility] de Phone Number [facility] [address] [place] [address], * C-REACTIVE PROTEIN (05/31/2023 10:50 AM CDT) C-REACTIVE PROTEIN <0.3 <0.5 mg/dL 05/31/2023 12:57 PM CDT [facility] Blood BLOOD SPECIMEN / Unknown Venipuncture / Unknown 05/31/2023 10:50 AM CDT 05/31/2023 10:54 AM CDT Renu PAN CHEMISTRY Performing Organization Address [facility] Co de Phone Number [facility] [address] [place] [address] [place] [address] * HEPATIC FUNCTION PANEL (05/31/2023 10:50 AM CDT) ALBUMIN 4.8 4.0 - 4.9 g/dL 05/31/2023 12:57 PM T [facility] PROTEIN,TOTAL 7.4 6.0 - 8.0 g/dL 05/31/2023 12:57 PM [facility] BILIRUBIN,TOTAL 0.5 0.0 - 1.2 mg/dL 05/31/2023 12:57 PM [facility] BILIRUBIN,DIRECT <0.2 0.0 - 0.3 mg/dL 05/31/2023 12:57 PM T [facility] BILIRUBIN,INDIRE CT 05/31/2023 12:57 PM [facility] Comment:Unable to calculate, Direct Bili <0.2 ALK PHOSPHATASE 62 35 - 104 IU/L 05/31/2023 12:57 PM [facility] ALT (SGPT) 15 10 - 35 IU/L 05/31/2023 12:57 PM [facility] AST (SGOT) 19 10 - 35 IU/L 05/31/2023 12:57 PM [facility] Blood BLOOD SPECIMEN / Unknown Venipuncture / Unknown 05/31/2023 10:50 AM CDT 05/31/2023 10:54 AM CDT Renu PAN CHEMISTRY [facility] [address] [place] [address] * US PELVIS COMPLETE TA AND TV WITH DUPLEX (05/20/2023 2:06 PM [employer]) Anatomical Region Laterality Modality Pelvis Ultrasound Impressions 05/20/2023 2:15 PM [employer] Normal uterus and endometrium. ??Inadequate visualization of the ovaries and adnexa due to shadowing bowel gas. Narrative 05/20/2023 2:15 PM [employer] EXAM: US Pelvis complete transabdominal and transvaginal [...] * EKG 12 LEAD (05/20/2023 1:15 PM [employer]) Interpretation Sinus rhythm with marked sinus arrhythmia Possible Left atrial enlargement Borderline ECG No previous ECGs available BEYOND NOW Ventricular Rate 87 BPM BEYOND NOW Atrial Rate 87 BPM BEYOND NOW P-R Interval 134 ms BEYOND NOW QRS Duration 80 ms BEYOND NOW QT 350 ms BEYOND NOW QTc 421 ms BEYOND NOW [place] 81 degrees BEYOND NOW [place] 87 degrees BEYOND NOW [place] 45 degrees BEYOND NOW 05/20/2023 1:15 PM [employer] 05/20/2023 4:18 PM [employer] Jagdeep Prajapati MD EKG ORD BEYOND NOW [place], [place] * (ABNORMAL) URINALYSIS MICROSCOPIC (05/20/2023 1:07 PM [employer]) RBC >100(A) 0-2, None Seen /HPF 05/20/2023 1:35 PM [employer] [facility] WBC 11-25(A) 0-2, 3-5, None Seen /HPF 05/20/2023 1:35 PM [employer] [facility] BACTERIA Moderate(A ) None Seen, Rare, Few Bacteria/ HPF 05/20/2023 1:35 PM [employer] [facility] EPITHELIAL CELLS Few None Seen, Few Epi/HPF 05/20/2023 1:35 PM [employer] [facility] Urine URINE SPECIMEN / Unknown Non-Blood / Unknown 05/20/2023 1:07 PM [employer] 05/20/2023 1:16 PM [employer] Jagdeep Prajapati MD URINE Performing Organization Address City/[facility]/ZIP Co de Phone Number [facility] [address] [place] [address] * URINE CULTURE (05/20/2023 1:07 PM [employer]) CULTURE 10-50,000 CFU/mL of multiple organisms, probable contaminants 05/21/2023 6:03 PM [employer] [facility] Urine URINE SPECIMEN / Unknown Non-Blood / Unknown 05/20/2023 1:07 PM [employer] 05/20/2023 1:16 PM [employer] Jagdeep Prajapati MD MICROBIOLOGY Performing Organization Address City/[facility]/ZIP Co de Phone Number [facility] [address] [place] [address], [place] * (ABNORMAL) UA W/ SEDIMENT EXAM REFLEXED PER CRITERIA (05/20/2023 1:07 PM [employer]) COLOR Red(A) Yellow Color 05/20/2023 1:35 PM [facility] CLARITY Cloudy(A) Clear Clarity 05/20/2023 1:35 PM [facility] SPECIFIC GRAVITY,URINE Unable to interpret due to interfering substance(A) 1.010, 1.015, 1.020, 1.025 05/20/2023 1:35 PM [facility] PH,URINE Unable to interpret due to interfering substance(A) 6.0, 7.0, 8.0, 5.5, 6.5, 7.5, 8.5 05/20/2023 1:35 PM [facility] UROBILINOGEN, QUALITATIVE Unable to interpret due to interfering substance(A) Normal EU/dl 05/20/2023 1:35 PM [facility] PROTEIN, URINE Unable to interpret due to interfering substance(A) Negative mg/dL 05/20/2023 1:35 PM [facility] GLUCOSE, URINE Unable to interpret due to interfering substance(A) Negative mg/dL 05/20/2023 1:35 PM [facility] KETONES,URINE Unable to interpret due to interfering substance(A) Negative mg/dL 05/20/2023 1:35 PM [facility] BILIRUBIN,URI NE Unable to interpret due to interfering substance(A) Negative 05/20/2023 1:35 PM [facility] OCCULT BLOOD,URINE Unable to interpret due to interfering substance(A) Negative 05/20/2023 1:35 PM [facility] NITRITE Unable to interpret due to interfering substance(A) Negative 05/20/2023 1:35 PM [facility] LEUKOCYTE ESTERASE Unable to interpret due to interfering substance(A) Negative 05/20/2023 1:35 PM [facility] Urine URINE SPECIMEN / Unknown Non-Blood / Unknown 05/20/2023 1:07 PM [employer] 05/20/2023 1:16 PM [employer] Jagdeep Prajapati MD URINE [facility] [address] [place] [address] * CBC W PLT NO DIFF (05/20/2023 1:01 PM [employer]) WHITE BLOOD COUNT 8.2 4.5 - 11.0 thou/cu mm 05/20/2023 1:08 PM [facility] RED BLOOD COUNT 4.97 4.00 - 5.20 mil/cu mm 05/20/2023 1:08 PM [facility] HEMOGLOBIN 15.2 12.0 - 16.0 g/dL 05/20/2023 1:08 PM [facility] HEMATOCRIT 44.8 33.0 - 51.0 % 05/20/2023 1:08 PM [facility] MCV 90 80 - 100 fL 05/20/2023 1:08 PM [facility] MCH 30.6 26.0 - 34.0 pg 05/20/2023 1:08 PM [facility] MCHC 33.9 32.0 - 36.0 g/dL 05/20/2023 1:08 PM [facility] RDW 12.7 11.5 - 15.5 % 05/20/2023 1:08 PM [facility] PLATELET COUNT 282 140 - 440 thou/cu mm 05/20/2023 1:08 PM [facility] MPV 10.1 6.5 - 11.0 fL 05/20/2023 1:08 PM [facility] Blood BLOOD SPECIMEN / Unknown Venipuncture / Unknown 05/20/2023 1:01 PM [employer] 05/20/2023 1:04 PM [facility] Jagdeep Prajapati MD HEMATOLOGY [facility] [address] [place] [address] * BASIC METABOLIC PANEL (05/20/2023 1:01 PM [facility]) SODIUM 139 136 - 145 mmol/L 05/20/2023 1:23 PM [facility] POTASSIUM 4.4 3.5 - 5.1 mmol/L 05/20/2023 1:23 PM [facility] CHLORIDE 105 98 - 107 mmol/L 05/20/2023 1:23 PM [facility] CO2,TOTAL 25 22 - 29 mmol/L 05/20/2023 1:23 PM [facility] ANION GAP 9 5 - 18 05/20/2023 1:23 PM [facility] GLUCOSE 95 70 - 99 mg/dL 05/20/2023 1:23 PM [facility] CALCIUM 9.5 8.6 - 10.0 mg/dL 05/20/2023 1:23 PM [facility] BUN 10 6 - 20 mg/dL 05/20/2023 1:23 PM [facility] CREATININE 0.73 0.50 - 0.90 mg/dL 05/20/2023 1:23 PM [facility] BUN/CREAT RATIO 14 10 - 20 4 1:23 PM [facility] eGFR >90 >90 mL/min/1.7 3m2 05/20/2023 1:23 PM [facility] Comment:As of 2021, eG FR is calculated by the CKD-EPI creatinine equation without race adjustment. ??eGFR can be influenced by muscle mass, exercise, and diet. ??The reported eGFR is an estimation only and is only applicable if the renal function is stable. Blood BLOOD SPECIMEN / Unknown Venipuncture / Unknown 05/20/2023 1:01 PM [employer] 05/20/2023 1:04 PM [employer] Jagdeep Prajapati MD CHEMISTRY [facility] [address] [place] [address] from Last 3 Months Advance Directives Documents on File Type Date Recorded Patient Wheel Tuner Expl anation Treatment Guidelines 01/24/2019 12:00 AM 1 03/26/2018 * Full Code (Latest Code Status on File) Date Activated Date Inactivated Comments 01/24/2019 10:50 AM 01/28/2019 1:23 PM * Full Code Date Activated Date Inactivated Comments 02/21/2018 8:19 AM 02/22/2018 2:35 AM Question Answer Comments Code Status Discussion: Discussed Care Teams Keno Terminal Operator Relationship Specialty Start Date End Date Gracia Mills MD [address] [address] PCP - General Family Practice 10/02/14
== END 2023-08-12 10:51 | disposition home or self-care (01) ==
LOC: NFLDREF 10:51
PROVIDERS: Visit Provider Obstetrics & Gynecology
DX: L76.34 Postprocedural seroma of skin and subcutaneous tissue following other procedure (principal)
CPT/HCPCS: 87070